=== PATIENT | male | born 2005 | race Caucasian/White ===

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

== ENCOUNTER 2025-05-12 09:41 | Emergency (ER) | payer MEDICAID, SELFPAY ==
[2025-05-12 09:45] VITALS: BP 120/61; PULSE 100; RESP 16; TEMP 36.9; O2SAT 98; BMI 27.3
[2025-05-12 10:14] LABS: IDNOW Serial# 55D5AD1C; Strep A Nucleic Acid Negative (Negative)
--- OUTSIDE RECORDS SUMMARY | 2025-05-12 10:37 | XMS_ITS | Encounter Summary ---
Author Organization [facility] Address [address] [place] [address] Phone Care Team Providers Care Firewood Cutter Name Role Phone Toyin Lewis MD Primary Care Provider Encounter Details Date Type Department Care Team (Late st Contact Info) Description 08/12/2014 Documentation [facility] [place] [facility] [address] [place], [place] [id number] Family Medicine, Physician [address] [place], [place] [id number] Social History Tobacco Use Types Packs/Day Years Used Date Smoking Tobacco: Never Assessed Sex and Gender Information Value Date Recorded Sex Assigned at Not on file Legal Sex Male 4:54 PM EDT Gender Identity Male 09/05/2023 10:38 AM EST Sexual Orientation Don't know 09/05/2023 10 :38 AM EST documented as of this encounter Plan of Treatment Not on file documented as of this encounter Visit Diagnoses Not on filedocumented in this encounter Care Teams Firewood Cutter Relationship Specialty Start Date End Date Toyin Lewis MD [address] [place] [address] PCP - General Pediatrics 06/26/17 documented as of this encounter
[2025-05-12 10:41] LABS: Resp Syncy Virus RNA Qual PCR NEGATIVE (Negative); SARS COV2 PCR INHOUSE NEGATIVE (Negative)
--- NOTE | 2025-05-12 11:14 | ED_ITS ---
HPI - General Adult General Chief complaint: Upper Respiratory Symptoms Stated complaint: THROAT PAIN X 1 DAY,DENIES SOB Time Seen by Provider: 05/12/25 10:33 Source: patient, family, RN notes reviewed and staff interpreter Mode of arrival: ambulatory Limitations: no limitations and language barrier History of Present Illness ED Provider: Gema Bunn PA-C HPI narrative: This is a 19-year-old male who presents emergency department with concerns of sore throat and fatigue for the last 24 hours. He denies any fevers, chills, chest pain, shortness for breath, abdominal pain, nausea, vomiting or diarrhea. No sick contacts. He has been taking ibuprofen for his symptoms which has provided him with some relief. No other complaints or concerns at this time. MD complaint: Sore throat Onset (ago): day(s) Relieving factors: none Exacerbating factors: none Associated symptoms: denies other symptoms Treatments prior to arrival: none Related Data Home Medications ?Medication ?Instructions ?Recorded ?Confirmed dexmethylphenidate 5 mg tablet 1 tab PO BID 11/24/21 0 11/24/21 Previous Rx's ?Medication ?Instructions ?Recorded acetaminophen 500 mg tablet 1,000 mg (2 x 500 mg) PO Q 8H PRN 05/12/25 (Tylenol Extra Strength) pain #30 tabs amoxicillin 500 mg capsule 500 mg PO BID 10 days #20 c aps 05/12/25 ibuprofen 600 mg tablet 600 mg PO Q6H PRN pain #30 t abs 05/12/25 Allergies Allergy/AdvReac Type Severity Reaction Status Date / Time No Known Allergies Allergy Verified 05/12/25 09:47 Review of Systems Review of Systems: Yes all other systems are reviewed and are negative Constitutional: Constitutional: Reports as per [facility] Past Medical History Medical History ADHD Social History Social History Patient Tobacco Use Status: Never used Tobacco Substance Use Type: Marijuana Advance Directives: No Advance Directives Information Provided: Yes Physical Exam ED Vital Signs: Vital Signs - 24 hr 05/12/25 09:45 05/12/25 11:29 Temperature 98.5 F 98.5 F Pulse Rate 100 100 Respiratory Rate 16 16 Blood Pressure 120/61 120/61 Pulse Oximetry 98 98 Oxygen Delivery Method Room Air Room Air BMI result Body Mass Index 27.3 Const General: cooperative, comfortable and no acute distress Orientation/consciousness: patient oriented x3 Limitations: no limitations HENMT Other: Bilateral tonsils are erythematous and exudative. Uvula is midline. No trismus, drooling, or dysphonia. Head: Yes normal to inspection, Yes normocephalic and Yes atraumatic Ears: hearing grossly normal bilaterally and TM's normal bilaterally General nose exam: Normal external nose present Face and sinus: Yes normal facial exam Mouth: Normal oral and palatal mucosa present, oropharynx normal and moist mucous membranes Throat: Yes posterior oropharynx normal Eyes General: appearance normal, both eyes and all related structures Eyelids: Yes eyelids normal Conjunctivae: conjunctivae normal Sclerae: sclerae normal Pupils: Equal, round and reactive pupils present EOM: EOMs intact bilaterally Neck Neck: Yes normal visual inspection, Yes full ROM and Yes no lymphadenopathy Lymphatic: no lymphadenopathy noted Chest Chest palpation & inspection: normal inspection of the chest Resp Effort & Inspection: normal respiratory effort and able to speak in complete sentences Auscultation: clear to auscultation bilaterally, no crackles, no rales, no rhonchi and no wheezes Cardio Rate: regular rate Rhythm: regular rhythm Heart sounds: S1 normal heart sound present and S2 normal heart sound present GI Inspection: Yes normal to inspection Skin General skin exam: no rashes or lesions noted Trauma: no lacerations or abrasions Wounds: no wounds Neuro General: patient oriented x3 and moves all extremities Cranial nerves: Yes Equal, round and reactive pupils present Extrem General: Yes normal to inspection Right upper extremity: normal to inspection Left upper extremity: normal to inspection Right lower extremity: normal to inspection Left lower extremity: normal to inspection Medical Decision Making Medical Decision Making MDM Narrative: This is a 19-year-old male who presents emergency department for evaluation of sore throat for the last 24 hours. On arrival, vital signs within normal limits. He is speaking full sentences under no acute distress. Throat with bilateral tonsillar hypertrophy and exudates noted, uvula is midline. Differential diagnoses include strep pharyngitis, tonsillitis, FINAL INSPECTOR PAPER-unlikely, viral URI. Viral swabs were obtained, negative for COVID, flu, RSV, and strep throat. We did draw for a Monospot however father and patient did not want to leave for the results. We called patient, and informed him of negative screening. Given tonsillitis/pharyngitis, will treat with amoxicillin. This was sent to his pharmacy. He was given strict return precautions. He understands and agrees with plan. Patient stable for discharge. Called and spoke to father with staff interpreter. Differential Diagnosis Differential Diagnoses: The differential diagnosis associated with the presentation includes See above Lab Data MDM Lab Attestation statement: I reviewed the patient's lab results. See MDM and course Labs: Lab Results 05/12/25 05/12/25 Range/Units 09:55 11:21 Monoscreen Negative (Negative) Influenza Type A (PCR) NEGATIVE (Negative) Influenza Type B (PCR) NEGATIVE (Negative) RSV RNA Qual (PCR) NEGATIVE (Negative) SARS-CoV-2 RNA (RT-PCR) NEGATIVE (Negative) S. pyogenes GrpA ANASTACIA Negative (Negative) Independent Historian Clinical information obtained from an independent historian. History obtained from or confirmed by: Parent Discharge Plan Discharge Clinical Impression: Sore throat Patient Disposition: Home, Self-Care Instructions: Pharyngitis (ED) Additional Instructions: You were seen in the emergency department due to a sore throat. You tested negative for COVID, flu, RSV and strep throat. Your throat exam is concerning for a throat infection. We are tested you for mono, we will call you with the test results. If you tested negative for mono, we will start you on antibiotics, please take full course of antibiotics even if your symptoms improve. Please throw away your toothbrush in 72 hours after starting the antibiotics. Alternate between ibuprofen and or Tylenol as needed for pain. If any new or worsening symptoms occur including but not limited to inability to swallow, severe chest pain or shortness for breath, please seek emergent care. Prescriptions: New amoxicillin 500 mg capsule 500 mg PO BID 10 Days Qty: 20 0RF ibuprofen 600 mg tablet 600 mg PO Q6H PRN (Reason: pain) Qty: 30 0RF acetaminophen [Tylenol Extra Strength] 500 mg tablet 1,000 mg PO Q8H PRN (Reason: pain) Qty: 30 0RF No Action dexmethylphenidate 5 mg tablet 1 tab PO BID Stand Alone Forms: Work/School Release Interventions: ED Discharge Assessment Last Done: 05/12/25 11:29 Discharge Date/Time: 05/12/25 11:29 Print Language: Uruguayan
[2025-05-12 11:29] VITALS: BP 120/61; PULSE 100; RESP 16; TEMP 36.9; O2SAT 98
== END 2025-05-12 11:29 | disposition home or self-care (01) ==
PROVIDERS: Physician Assistant Medical; Emergency Provider Emergency Medicine
DX: R07.0 Pain in throat (principal); Z03.818 Encounter for observation for suspected exposure to other biological agents ruled out; Z79.899 Other long term (current) drug therapy
CPT/HCPCS: 36415; 86308; 87637; 87651; 99282; 99283

== ENCOUNTER 2025-06-04 09:26 | Emergency (ER) | payer MEDICAID, SELFPAY ==
[2025-06-04 09:33] VITALS: BP 118/71; PULSE 54; RESP 16; TEMP 36.6; O2SAT 100; BMI 19.4
--- NOTE | 2025-06-04 09:35 | ED_ITS ---
HPI - URI/Sore Throat General Chief Complaint: Upper Respiratory Symptoms Stated Complaint: Difficulty Swallowing Time Seen by Provider: 06/04/25 10:42 Source: patient Mode of arrival: ambulatory Limitations: no limitations History of Present Illness ED Provider: DINA SCOTT Narrative: 19 yo male with no PMH treated for strep throat 3 weeks was okay with antibiotics but did miss some still c/o sore throat no other testing for STI done. 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 He has no known fevers but get chills. He is in no distre ss, talking on his phone throughout his visit. Tolerating PO. elicited complaint: sore throat Onset (ago): week(s) (3) Consistency: intermittent Severity: mild Description of mucous: clear Able to tolerate fluids by mouth: Yes Exacerbating factors: swallowing Relieving factors: nothing Context: other Associated symptoms: chills Treatments prior to arrival: antibiotics Related Data Home Medications ?Medication ?Instructions ?Recorded ?Confirmed dexmethylphenidate 5 mg tablet 1 tab PO BID 11/24/21 0 11/24/21 Previous Rx's ?Medication ?Instructions ?Recorded acetaminophen 500 mg tablet 1,000 mg (2 x 500 mg) PO Q 8H PRN 05/12/25 (Tylenol Extra Strength) pain #30 tabs amoxicillin 500 mg capsule 500 mg PO BID 10 days #20 c aps 05/12/25 ibuprofen 600 mg tablet 600 mg PO Q6H PRN pain #30 t abs 05/12/25 cephalexin 500 mg capsule 500 mg PO BID 10 days #20 ca ps 06/04/25 prednisone 20 mg tablet 40 mg (2 x 20 mg) PO DAILY 3 days 06/04/25 #6 tabs Allergies Allergy/AdvReac Type Severity Reaction Status Date / Time No Known Allergies Allergy Verified 06/04/25 09:36 Review of Systems Review of Systems: Constitutional : No Fever, pos Chills, No Fatigue ENT/Mouth :pos sore throat, No Rhinorrhea Eyes: No Eye Pain, No Swelling, No Redness Cardiovascular : No Chest Pain, No SOB, No Dyspnea on Exertion Respiratory : No Cough, No Sputum Gastrointestinal : No Nausea, No Vomiting, No Diarrhea, No abdominal Pain Genitourinary : No Dysuria, No Urinary Frequency, No Hematuria, Musculoskeletal : No joint pain, No Myalgias, No Joint Swelling Skin : No Skin Lesions, No rash Neuro : No Weakness, No Numbness, No Dizziness, positive Headache All other systems reviewed and are negative [facility] Past Medical History Attestation statement: The following information was validated with the patient. Source: old records reviewed Medical History ADHD Social History Social History Patient Tobacco Use Status: Never used Tobacco Substance Use Type: Marijuana Physical Exam Vital Signs: Vital Signs: Last Vital Signs Temp 98 F 06/04/25 09:33 Pulse 54 06/04/25 09:33 Resp 16 06/04/25 09:33 BP 118/71 06/04/25 09:33 Pulse Ox 100 06/04/25 09:33 O2 Del Method Room Air 06/04/25 09:33 BMI result Body Mass Index 19.4 Appearance: Alert. Oriented X3. No acute distress. Eyes: Pupils equal, round and reactive to light. ENT: Pharynx mild erythema no swelling no exudates shotty nodes both ant cervical chain, normal voice. He has normal ROM of neck no signs of ATHLETE MANAGER or abscess, uvula midline Neck: Normal inspection. Neck supple. CVS: Normal heart rate and rhythm. Pulses normal. Respiratory: No respiratory distress. Breath sounds normal. Abdomen: Soft and nontender. Skin: Skin warm and dry. Normal skin color. Normal skin turgor. Extremities: No lower extremity edema. No calf ttp Neuro: Oriented X 3. No motor deficit. No sensory deficit. CN2-12 intact Course Course Course Narrative: 19 yo male no PMH here with 3 weeks ago treatment for strep throat he states confirmed it was strep but he admits to missing some abx. He threw his toothbrush away. He went to again today and they told him he had a ATHLETE MANAGER - he has no muffled voice, he has no signs of ATHLETE MANAGER on exam. He has lymphadenopathy of both glands at this time will test for strep/CTNG. I do not see signs of ATHLETE MANAGER or retropharyngeal abscess. He has normal full ROM of neck as well. He has not had a fever in two days. this is a RAPID medical screening exam the rest of the history and physical exam is to be done by the main provider. DINA 06/04/25 936am Medical Decision Making Medical Decision Making [facility] Narrative: 19 yo male with no PMH treated for strep throat 3 weeks now sent for ATHLETE MANAGER but it is unclear why he has no clinical evidence of swelling or signs of abscess he is not toxic and well appearing suspect poorly treated strep vs STI will start on steroids and cephalexin and advise return precautions. Differential Diagnosis Differential Diagnoses: The differential diagnosis associated with the presentation includes STI, untreated strep, no concern for ATHLETE MANAGER/abscess Admission/Observation Consideration of admission/observation: Escalation of care including admission/observation considered not toxic stable for DC Lab Data [facility] Lab Attestation statement: I reviewed the patient's lab results. Labs: Lab Results 06/04/25 Range/Units 09:51 S. pyogenes GrpA ANASTACIA Negative (Negative) External Record Review External record reviewed: Outpatient record Prescription Management I considered prescription management with: Antibiotic Discharge Plan Discharge Clinical Impression: Pharyngitis Qualifiers: Pharyngitis/tonsillitis etiology: unspecified etiology Qualified Code(s): J02.9 - Acute pharyngitis, unspecified Patient Disposition: Home, Self-Care Instructions: Pharyngitis (ED) Additional Instructions: negative strep test today there are no signs of abscess on exam we did send off chlamydia test for the throat we will call you if positive finish all antibiotics throw away toothbrush in 24 hours On a cephalosporin?antibiotic, softer bowel movements are to be expected. Call your provider if you move your bowels more than 4 times a day, your bowel movements are almost all liquid, or you get a rash.?? Prescriptions: New cephalexin 500 mg capsule 500 mg PO BID 10 Days Qty: 20 0RF prednisone 20 mg tablet 40 mg PO DAILY 3 Days Qty: 6 0RF No Action dexmethylphenidate 5 mg tablet 1 tab PO BID amoxicillin 500 mg capsule 500 mg PO BID 10 Days Qty: 20 0RF ibuprofen 600 mg tablet 600 mg PO Q6H PRN (Reason: pain) Qty: 30 0RF acetaminophen [Tylenol Extra Strength] 500 mg tablet 1,000 mg PO Q8H PRN (Reason: pain) Qty: 30 0RF Stand Alone Forms: Work/School Release Print Language: Upper Sorbian
[2025-06-04 10:36] LABS: IDNOW Serial# 55D5AD1C; Strep A Nucleic Acid Negative (Negative)
[2025-06-04 10:50] VITALS: BP 118/71; PULSE 54; RESP 16; TEMP 36.6; O2SAT 100
--- OUTSIDE RECORDS SUMMARY | 2025-06-04 10:51 | XMS_ITS | Encounter Summary ---
Author Organization [facility] Address [address] [place] [phone] Phone Care Team Providers Care Delivery Stock Clerk Name Role Phone Ca Elmore MD Primary Care Provider Unavailabl e Encounter Details Date Type Department Care Team (Late st Contact Info) Description 08/12/2014 Documentation EM Family Medicine [address] [place], [place] [id number] Family Medicine, Physician [address] [place] [address] Social History Tobacco Use Types Packs/Day Years [...] on filedocumented in this encounter Care Teams Delivery Stock Clerk Relationship Specialty Start Date End Date Ca Elmore MD PCP - General 06/07/17 06/25/17 documented as of this encounter
[2025-06-08 10:18] LABS: C. Trachomatis RNA TMA, Throat NOT DETECTED; N. gonorrhoeae RNA TMA, Throat NOT DETECTED
== END 2025-06-04 10:53 | disposition home or self-care (01) ==
LOC: HO.ED 10:49
PROVIDERS: Emergency Provider Emergency Medicine; PCP Internal Medicine
DX: J02.9 Acute pharyngitis, unspecified (principal)
CPT/HCPCS: 87491; 87591; 87651; 99282; 99283

== ENCOUNTER 2025-06-22 10:20 | Emergency (ER) | payer MEDICAID, SELFPAY ==
[2025-06-22 10:25] VITALS: BP 124/76; PULSE 16; O2SAT 97
[2025-06-22 11:13] VITALS: BP 130/67; PULSE 97; RESP 16; TEMP 37.7; O2SAT 100; BMI 18.7
[2025-06-22 11:13] LABS: COVID-19 Test Positive (Negative); IDNOW Serial# 58CA691E
[2025-06-22 11:18] LABS: IDNOW Serial# 55D5AD1C; Strep A Nucleic Acid Negative (Negative)
[2025-06-22 11:25] LABS: IDNOW Serial# 08D9AD1C; Influenza B2 Negative (Negative)
--- NOTE | 2025-06-22 11:38 | ED_ITS ---
HPI - General Adult General Chief complaint: Upper Respiratory Symptoms Stated complaint: SORETHROAT,CHILLS PER EMS Time Seen by Provider: 06/22/25 11:15 Source: patient Mode of arrival: ambulatory Limitations: no limitations History of Present Illness ED Provider: Abhishek Flores HPI narrative: 20 yold healthy male recently diagnosed with strep last week presents to the ED for sore throat, haeadache, fever, and malaise. patinet finished course of antibiotics. patient's girlfriend test for strep also. Related Data Home Medications ?Medication ?Instructions ?Recorded ?Confirmed dexmethylphenidate 5 mg tablet 1 tab PO BID 11/24/21 0 11/24/21 Previous Rx's ?Medication ?Instructions ?Recorded acetaminophen 500 mg tablet 1,000 mg (2 x 500 mg) PO Q 8H PRN 05/12/25 (Tylenol Extra Strength) pain #30 tabs amoxicillin 500 mg capsule 500 mg PO BID 10 days #20 c aps 05/12/25 ibuprofen 600 mg tablet 600 mg PO Q6H PRN pain #30 t abs 05/12/25 cephalexin 500 mg capsule 500 mg PO BID 10 days #20 ca ps 06/04/25 prednisone 20 mg tablet 40 mg (2 x 20 mg) PO DAILY 3 days 06/04/25 #6 tabs Allergies Allergy/AdvReac Type Severity Reaction Status Date / Time No Known Allergies Allergy Verified 06/22/25 11:15 Review of Systems Review of Systems: sore throat, fever, mailaise Yes all other systems are reviewed and are negative PMFSH Past Medical History Medical History ADHD Social History Social History Patient Tobacco Use Status: Never used Tobacco Substance Use Type: Marijuana Advance Directives: No Advance Directives Information Provided: No Physical Exam ED Vital Signs: Vital Signs - 24 hr 06/22/25 11:13 Temperature 99.8 F Pulse Rate 97 Respiratory Rate 16 Blood Pressure 130/67 Pulse Oximetry 100 Oxygen Delivery Method Room Air BMI result Body Mass Index 18.7 Const General: cooperative, healthy appearing, comfortable, no acute distress, well developed, alert, awake and Physically active Orientation/consciousness: patient oriented x3 HENMT Head: Yes normal to inspection, Yes No palpable skull fracture present, Yes normocephalic and Yes atraumatic Ears: hearing grossly normal bilaterally, external ears normal, TM's normal bilaterally, TM normal on the right, TM normal on the left and EAC's normal Throat: Yes posterior oropharynx normal, Yes tonsils normal and Yes uvula midline Eyes General: appearance normal, both eyes and all related structures Neck Neck: Yes normal visual inspection, Yes full ROM, Yes no lymphadenopathy, Yes no meningeal signs, Yes trachea midline, Yes supple, No anterior neck swelling and No tender Chest Chest palpation & inspection: normal inspection of the chest and normal palpation of entire chest wall Resp Effort & Inspection: normal respiratory effort and able to speak in complete sentences Auscultation: clear to auscultation bilaterally Cardio Jugular venous distension: no JVD Heart sounds: S1 normal heart sound present and S2 normal heart sound present GI Inspection: Yes normal to inspection Palpation (GI): Soft to palpation, not firm, nontender, no guarding and not rigid General: Yes no CVA tenderness Back/Spine/Pelvis Back: no CVA tenderness and No back tenderness Skin General skin exam: no rashes or lesions noted, elasticity normal and turgor normal Neuro General: patient oriented x3, gait normal, tone normal, moves all extremities, Normal light touch and pain sensation, no meningeal signs and no focal motor deficits Extrem General: Yes normal to inspection, Yes full ROM and Yes capillary refill normal Psych Appearance: grossly normal, well kempt and not disheveled Medical Decision Making Medical Decision Making MDM Narrative: 20-year-old male presents to ED for sore throat and chills. Patient was treated for strep last week presents to the ED now with sore throat and fever. Patient states girlfriend also recently had strep. COVID influenza strep ordered. Covid came back positive. Rest of test exam negative. Negative for signs of peritonsillar abscess, hypoxia, sepsis, pneumonia, respiratory failure. Patient well-appearing. Patient explained worrisome signs and informed to return to the ED immediately. Differential Diagnosis Differential Diagnoses: The differential diagnosis associated with the presentation includes (COVID influenza strep) Admission/Observation Consideration of admission/observation: Escalation of care including admission/observation considered Lab Data [facility] Lab Attestation statement: I reviewed the patient's lab results. Labs: Lab Results 06/22/25 Range/Units 10:43 COVID-19 (OLIVIA) Positive A (Negative) COVID-19 Clin Com See Note Influenza Type A (ANASTACIA) Negative (Negative) Influenza Type B (ANASTACIA) Negative (Negative) Influenza A & B Note See Note S. pyogenes GrpA ANASTACIA Negative (Negative) Independent Historian Clinical information obtained from an independent historian. History obtained from or confirmed by: Other (patient) Discharge Plan Discharge Clinical Impression: COVID-19 Patient Disposition: Home, Self-Care Instructions: COVID-19 (Coronavirus Disease 2019) (ED) Additional Instructions: Recommend follow up with primary care provider. Return to the ED immediately for any chest pain, shortness of breath, coughing up blood, weakness, dizziness, or any other concerning symptoms. [id number] Tylenol/Motrin can be used for pain fever relief Prescriptions: No Action dexmethylphenidate 5 mg tablet 1 tab PO BID amoxicillin 500 mg capsule 500 mg PO BID 10 Days Qty: 20 0RF ibuprofen 600 mg tablet 600 mg PO Q6H PRN (Reason: pain) Qty: 30 0RF acetaminophen [Tylenol Extra Strength] 500 mg tablet 1,000 mg PO Q8H PRN (Reason: pain) Qty: 30 0RF cephalexin 500 mg capsule 500 mg PO BID 10 Days Qty: 20 0RF prednisone 20 mg tablet 40 mg PO DAILY 3 Days Qty: 6 0RF Stand Alone Forms: Work/School Release Interventions: ED Discharge Assessment Last Done: 06/22/25 11:59 Discharge Date/Time: 06/22/25 11:59 Print Language: Luxembourger
[2025-06-22 11:59] VITALS: BP 130/67; PULSE 97; RESP 16; TEMP 37.7; O2SAT 100
--- OUTSIDE RECORDS SUMMARY | 2025-06-22 12:42 | XMS_ITS | Encounter Summary ---
Author Organization [facility] Address [address] [place] [phone] Phone Care Team Providers Care Instrument Specialist Name Role Phone Ca Elmore MD Primary Care Provider Unavailabl e Encounter Details Date Type Department Care Team (Late st Contact Info) Description 08/12/2014 Documentation EM Family Medicine [address] [place], [place] [phone] Family Medicine, Physician [address] [place] [address] Social History Tobacco Use Types Packs/Day Years [...] on filedocumented in this encounter Care Teams Instrument Specialist Relationship Specialty Start Date End Date Ca Elmore MD PCP - General 06/07/17 06/25/17 documented as of this encounter
--- OUTSIDE RECORDS SUMMARY | 2025-06-22 12:43 | XMS_ITS | Encounter Summary ---
Author Organization [facility] Address [address] [place] [phone] Phone Care Team Providers Care Seed Potato Arranger Name Role Phone Ca Elmore MD Primary Care Provider Unavailabl e Encounter Details Date Type Department Care Team (Late st Contact Info) Description 06/13/2012 Documentation EM Family Medicine [address] [place] [address] Family Medicine, Physician [address] [place] [address] Social History Tobacco Use Types Packs/Day Years [...] on filedocumented in this encounter Care Teams Seed Potato Arranger Relationship Specialty Start Date End Date Ca Elmore MD PCP - General 06/07/17 06/25/17 documented as of this encounter
--- OUTSIDE RECORDS SUMMARY | 2025-06-22 12:43 | XMS_ITS | Encounter Summary ---
Author Organization [facility] Address [address] [place] [phone] Phone Care Team Providers Care Cake Puncher Name Role Phone Ca Elmore MD Primary Care Provider Unavailabl e Encounter Details Date Type Department Care Team (Late st Contact Info) Description 06/13/2017 Conversion Encounter [facility] - [address] [address] Social History Tobacco Use Types Packs/Day Years [...] on filedocumented in this encounter Care Teams Cake Puncher Relationship Specialty Start Date End Date Ca Elmore MD PCP - General 06/07/17 06/25/17 documented as of this encounter
--- OUTSIDE RECORDS SUMMARY | 2025-06-22 12:43 | XMS_ITS | Encounter Summary ---
Author Organization [facility] Address [address] [place] [phone] Phone Care Team Providers Care Windows Software Engineer Name Role Phone Ca Elmore MD Primary Care Provider Unavailabl e Encounter Details Date Type Department Care Team (Late st Contact Info) Description 06/26/2016 Documentation EM Family Medicine [address] [place], [place] [phone] Family Medicine, Physician [address] [place] [address] Social History Tobacco Use Types Packs/Day Years [...] on filedocumented in this encounter Care Teams Windows Software Engineer Relationship Specialty Start Date End Date Ca Elmore MD PCP - General 06/07/17 06/25/17 documented as of this encounter
--- OUTSIDE RECORDS SUMMARY | 2025-06-22 12:43 | XMS_ITS | Encounter Summary ---
Author Organization [facility] Address [address] [place] [phone] Phone Care Team Providers Care Auxiliary Engineer Name Role Phone Ca Elmore MD Primary Care Provider Unavailabl e Encounter Details Date Type Department Care Team (Late st Contact Info) Description 06/13/2012 Documentation EM Family Medicine [address] [place] [address] Family Medicine, Physician [address] [place] [address] Social History Tobacco Use Types Packs/Day Years [...] on filedocumented in this encounter Care Teams Auxiliary Engineer Relationship Specialty Start Date End Date Ca Elmore MD PCP - General 06/07/17 06/25/17 documented as of this encounter
--- OUTSIDE RECORDS SUMMARY | 2025-06-22 12:43 | XMS_ITS | Encounter Summary ---
Author Organization [facility] Address [address] [place] [id number] Phone Care Team Providers Care Director Park Name Role Phone Ca Elmore MD Primary Care Provider Unavailabl e Encounter Details Date Type Department Care Team (Late st Contact Info) Description 02/09/2010 Documentation EM Family Medicine [address] [place], [place] [phone] Family Medicine, Physician [address] [place] [address] Social History Tobacco Use Types Packs/Day Years [...] on filedocumented in this encounter Care Teams Director Park Relationship Specialty Start Date End Date Ca Elmore MD PCP - General 06/07/17 06/25/17 documented as of this encounter
--- OUTSIDE RECORDS SUMMARY | 2025-06-22 12:43 | XMS_ITS | Encounter Summary ---
Author Organization [facility] Address [address] [place] [address] Phone Care Team Providers Care Print Project Manager Name Role Phone Ca Elmore MD Primary Care Provider Unavailabl e Encounter Details Date Type Department Care Team (Late st Contact Info) Description 08/12/2014 Documentation EM Family Medicine [address] [place], [place] [phone] Family Medicine, Physician [address] [place] [address] Social History Tobacco Use Types Packs/Day Years [...] on filedocumented in this encounter Care Teams Print Project Manager Relationship Specialty Start Date End Date Ca Elmore MD PCP - General 06/07/17 06/25/17 documented as of this encounter
--- OUTSIDE RECORDS SUMMARY | 2025-06-22 12:43 | XMS_ITS | Encounter Summary ---
Author Organization [facility] Address [address] [place] [id number] Phone Care Team Providers Care Produce Laborer Name Role Phone Ca Elmore MD Primary Care Provider Unavailabl e Encounter Details Date Type Department Care Team (Late st Contact Info) Description 06/26/2016 Documentation EM Family Medicine [address] [place], [place] [phone] Family Medicine, Physician [address] [place] [address] Social History Tobacco Use Types Packs/Day Years [...] on filedocumented in this encounter Care Teams Produce Laborer Relationship Specialty Start Date End Date Ca Elmore MD PCP - General 06/07/17 06/25/17 documented as of this encounter
--- OUTSIDE RECORDS SUMMARY | 2025-06-22 12:43 | XMS_ITS | Encounter Summary ---
Author Organization [facility] Address [address] [place] [address] Phone Care Team Providers Care Central Supply Supervisor Name Role Phone Ca Elmore MD Primary Care Provider Unavailabl e Encounter Details Date Type Department Care Team (Late st Contact Info) Description 08/12/2014 Documentation EM Family Medicine [address] [place], [place] [phone] Family Medicine, Physician [address] [place] [address] Social History Tobacco Use Types Packs/Day Years [...] on filedocumented in this encounter Care Teams Central Supply Supervisor Relationship Specialty Start Date End Date Ca Elmore MD PCP - General 06/07/17 06/25/17 documented as of this encounter
--- OUTSIDE RECORDS SUMMARY | 2025-06-22 12:43 | XMS_ITS | Clinical Summary ---
Author Organization [facility] Address [address] [place] [address] Phone Care Team Providers Care Rice Farmer Name Role Phone Unavailable Primary Care Provider Unavailabl e Allergies No known active allergies Medications dexmethylphenid ate 5 MG tablet TAKE 1 TABLET AT 12NOON AND 1/2 TABLET AT 4PM 0 06/05/2017 Active dexmethylphenid ate XR 20 MG 24 hr capsule Take 20 mg by mouth every morning. Active melatonin tablet TAKE 1-2 TABLET BY MOUTH AT BEDTIME 12/08/2021 Active methylphenidate 20 MG tablet TAKE 1/2 TABLET EVERY MORNING FOR 2 DAYS THEN INCREASE TO FULL TABLET FOR ADHD 12/12/2021 Active Active Problems Problem Noted Date Diagnosed Date COVID-19 vaccine series declined 03/21/2022 Overview (03/21/2022): 03/18 Decreased visual acuity 09/12/2020 Adopted 09/14/2019 Attention deficit hyperactiv ity disorder (ADHD), combined type 08/11/2014 Overview (09/12/2020): Followed by [facility] - Marybel Garcia is prescriber and Cassy is therapist. On Focalin XR 20 mg in am and Focalin 5 mg at noon Assessment & Plan (06/26/2017 2:44 PM EDT): Doing well on present regimen Resolved Problems Problem Noted Date Diagnosed Date Resolved Date Need for case management follow-up 09/12/2020 09/15/2021 Overview (09/12/2020): STD screen not done due to national shortage of tests Encounters Date Type Department Care Team Description 05/05/2025 Telephone [facility] [address] [address] Caitlin Barbosa MA 20 year old letter sent. from Last 3 Months Immunizations Immunization Administration Dates Next Due DTaP / Hep B / IPV 07/08/2006, 6,2005,08/09 DTaP 5 01/10/2010,02/13/2007 H1N1 01/10/2010,12/22/2009 HPV Vaccine 9 Valent 07/02/2018,06/26/2017 Hep A, ped/adol 11/14/2007,02/21/2007 Hep B, ped/adol 2005 Hib (HbOC) 02/13/2007,2005 Hib (PRP-T) 07/08/2006,2005 IPV 01/10/2010 Influenza, injectable, quadr ivalent, preservative free 09/15/2021,09/12/2020,09/14/2019,06/26,06/25/2016,08/11/2014 Influenza, injectable, trivalent 07/15/2009,11/29,11/14/2007 MMR 01/10/2010,07/08/2006 Meningococcal Conj (Menactra) MCV4P 09/15/2021,0 06/25/2016 Pneumococcal Conjugate 07/08/2006,2005, Tdap 06/25/2016 Varicella 01/10/2010,02/13/2007 Family History Medical History Relation Name Comments Obesity Father Jesse Asthma Mother Elisa Relation Name Status Comments Brother Winter Alive Father Jesse Alive Maternal Grandmother Materna l grandmother: Asthma Mother Elisa Alive Other No family histo ry of Developmental dislocation of hip, No family history of Strabismus/amblyopia, No family history of Diabetes mellitus, No family history of Deafness, No family history of Migraines, No family history of Seizure disorder, No family history of Sudden /[place] under age 55, No family history of Obesity, No family history of ADD/ADHD, No family history of Elevated cholesterol, No family history of Autism Social History Tobacco Use Types Packs/Day Years Used Date Smoking Tobacco: Never Smokeless Tobacco: Never Hunger/Food Answer Date Recorded In the last 12 months, did y ou or your family ever eat less than you felt you should because there wasn't enough money for food? No 09/15/2021 Stable Housing Answer Date Recorded Are you worried that in the next 2 months you may not have stable housing? No 09/15/2021 Transportation Concerns Answer Date Rec orded In the last 12 months, have you or your family ever had to go without healthcare because you didn't have a way to get there? No 09/15/2021 Hazards in Home Answer Date Recorded Think about the place you li ve. Do you have problems with any of the following? Pests (mice or roaches), mold, no/not working smoke detectors, water leaks, no window guards. No 2020 Financing Utilities Answer Date Recorde d In the last 12 months, has t he electric, gas, oil, or water company threatened to shut off your services in your home? No 09/15/2021 Safety at Home Answer Date Recorded Are you or your family worried about feeling saf e in your home? No 09/15/2021 Outside Support Answer Date Recorded Do you feel that you need mo re support from other people or programs to help you care for yourself or your family? No 09/15/2021 Understanding Health Concerns Answer Da te Recorded Do you need help understandi ng your or your child's healthcare needs (diagnosis, medications, plan, etc.)? No 09/15/2021 Financing Health Concerns Answer Date R ecorded In the last 12 months, was t here a time when your child needed to see a doctor or get medications or supplies but could not because of cost? No 09/15/2021 Missing School or Work Answer Date Mesfin rded Did you or your child miss s chool or work because of a health problem that could have been avoided? No 09/15/2021 Sex and Gender Information Value Date Recorded Sex Assigned at Not on file Legal Sex Male 4:54 PM EDT Gender Identity Male 09/05/2023 10:38 AM EST Sexual Orientation Don't know 09/05/2023 10 :38 AM EST Last Filed Vital Signs Vital Sign Reading Time Taken Comments Blood Pressure 126/76 03/21/2022 9:55 AM EDT Pulse 79 03/21/2022 9:55 AM EDT Temperature 36.2 C (97.2 F) 04/15/2023 11:07 AM EDT Respiratory Rate - - Oxygen Saturation - - Inhaled Oxygen Concentration - - Weight 55.9 kg (123 lb 3.2 oz) 04/15/2023 11:07 AM EDT Height 173.4 cm (5' 8.25 ) 03/21/2022 9:55 AM ED T Body Mass Index - - Plan of Treatment Health Maintenance Due Date Last Done Comments Varicella Vaccines (2 of 2 - 2-dose childhood series) 04/04/2010 01/10/2010, 02/13/2007 Men B Vaccine (1 of 2 - Standard) 2021 COVID-19 Vaccine ( - 2023-2 5 season) 2024 Influenza Vaccines (#1) 2025 09/15/20, 09/12/2020, 09/14/2019, Additional history exists DTaP,Tdap,and Td Vaccines (7 - Td or Tdap) 06/25/2026 06/25/2016, 01/10/2010, 02/13/2007, Additional history exists Hepatitis B Vaccines Completed 07/08/2006, 2005, 2005, Additional history exists Pneumococcal Vaccine Completed 07/08/2006, 2005, 2005 HIB Vaccines Completed 02/13/2007, 06/28, 2005, Additional history exists Hepatitis A Vaccines Completed 11/14/2007, 02/22/20 07 IPV Vaccines Completed 01/10/2010, 06/28, 2005, Additional history exists MMR Vaccines Completed 01/10/2010, 07/08/2006 HPV Vaccines Completed 07/02/2018, 06/26/2017 Meningococcal Vaccine Completed 09/15/2021, 016 Insurance [facility] NON PCC
--- OUTSIDE RECORDS SUMMARY | 2025-06-22 12:43 | XMS_ITS | Encounter Summary ---
Author Organization [facility] Address [address] [place] [phone] Phone Care Team Providers Care Insurance Follow Up Specialist Name Role Phone Ca Elmore MD Primary Care Provider Unavailabl e Encounter Details Date Type Department Care Team (Late st Contact Info) Description 07/06/2013 Documentation EM Family Medicine [address] [place] [address] Family Medicine, Physician [address] [place] [address] Social History Tobacco Use Types Packs/Day Years [...] on filedocumented in this encounter Care Teams Insurance Follow Up Specialist Relationship Specialty Start Date End Date Ca Elmore MD PCP - General 06/07/17 06/25/17 documented as of this encounter
== END 2025-06-22 11:59 | disposition home or self-care (01) ==
PROVIDERS: Emergency Provider Emergency Medicine
DX: U07.1 COVID-19 (principal)
CPT/HCPCS: 87502; 87635; 87651; 99282; 99283